=== PATIENT | male | born 1955 | race Caucasian/White ===

== ENCOUNTER 2025-07-07 19:02 | Inpatient (IN) | payer MEDICARE, OTHER ==
[~2025-07-07] VITALS: Ht 157.5 cm; Wt 62.6 kg
[2025-07-07 19:59] LABS: PLATELET COUNT (AUTO) 218 K/uL (150-450); RED BLOOD CELL COUNT(AUTO) 3.65 MIL/uL (4.5-6.0); RED CELL DISTRIBUTION WIDTH 14.1 % (11.5-15.0); WHITE BLOOD COUNT (AUTO) 3.8 K/uL (4.3-11.0)
[2025-07-07 20:12] LABS: ALCOHOL, BLOOD < 3 mg/dL (0-10); ASPARTATE AMINOTRANSFERASE 18 U/L (15-37); CALCIUM, SERUM 9.1 mg/dL (8.5-10.1); CREATININE 1.4 mg/dL (0.6-1.3); SODIUM SERUM 137 mmol/L (136-145); TOTAL PROTEIN, SERUM 7.3 g/dL (6.4-8.2); UREA NITROGEN, BLOOD 24 mg/dL (7-18)
[2025-07-07 21:00] LABS: AMPHETAMINE, URINE NEGATIVE (NEGATIVE); BARBITURATE, URINE NEGATIVE (NEGATIVE); BENZODIAZEPINE, URINE NEGATIVE (NEGATIVE); CANNABINOID, URINE NEGATIVE (NEGATIVE); COCCAINE, URINE NEGATIVE (NEGATIVE); OPIATE, URINE NEGATIVE (NEGATIVE)
[2025-07-07 21:20] LABS: APPEARANCE,URINE CLEAR (CLEAR); BLOOD, URINE NEGATIVE Ery/uL (NEGATIVE); LEUKOCYTE ESTERASE ,URINE NEGATIVE (NEGATIVE); NITRITE, URINE NEGATIVE (NEGATIVE); UGLUCOSE NEGATIVE (NEGATIVE)
[2025-07-07 21:30] LABS: ADD URINE CULTURE NO; SQUAMOUS EPITHELIAL CELL,UR None Seen /HPF (None Seen)
[2025-07-07] MEDS ORDERED: RISP1TAB7 PO (23:38)
[2025-07-07] MEDS ORDERED: ATOR80TA PO (23:38)
[2025-07-07] MEDS ORDERED: CHOL100040 PO (23:38)
[2025-07-07] MEDS ORDERED: RISP0.5T5 PO (23:38)
[2025-07-07] MEDS ORDERED: FENO48TA6 PO (23:38)
[2025-07-07] MEDS ORDERED: SENN-18 PO (23:38)
[2025-07-07] MEDS ORDERED: MAG30ORA PO (23:38)
[2025-07-07] MEDS ORDERED: ACET325T53 PO (23:38)
[2025-07-07] MEDS ORDERED: POLY17PO4 PO (23:38)
[2025-07-07] MEDS ORDERED: OXCA300T15 PO (23:38)
[2025-07-08] MEDS ORDERED: ACETAMINOPHEN 325 MG TABLET PO PRN (10:30)
[2025-07-08] MEDS ORDERED: ZOLPIDEM TARTRATE 5 MG TABLET PO PRN (10:30)
[2025-07-08] MEDS ORDERED: QUETIAPINE FUMARATE 25 MG TABLET PO PRN (10:30)
[2025-07-08] MEDS ORDERED: MAG HYDROX/AL HYDROX/SIMETH 30 ML UDC PO PRN (10:30)
[2025-07-08] MEDS ORDERED: MAGNESIUM HYDROXIDE 30 ML UDC PO PRN (10:30)
[2025-07-08] MEDS: BLOOD SUGAR DIAGNOSTIC 1 EACH STRIP IN ONE (10:53)
[2025-07-08 13:32] VITALS: BP 127/62; TEMP 98; O2SAT 95
[2025-07-08 16:00] VITALS: BP 99/61; TEMP 97.5; O2SAT 100
[2025-07-08 21:00] VITALS: BP 104/60; TEMP 97.7; O2SAT 98
[2025-07-08] MEDS: OLANZAPINE 5 MG TABLET PO SCH (21:27)
[2025-07-09 07:50] LABS: CREATININE 1.2 mg/dL (0.6-1.3)
[2025-07-09 08:00] VITALS: BP 98/55; TEMP 97.8; O2SAT 96
[2025-07-09 08:01] LABS: LDL 81 mg/dL (0-99)
[2025-07-09 08:04] LABS: ASPARTATE AMINOTRANSFERASE 14.0 U/L (15-37); CALCIUM, SERUM 8.7 mg/dL (8.5-10.1); CREATININE 1.1 mg/dL (0.6-1.3); SODIUM SERUM 140.0 mmol/L (136-145); TOTAL PROTEIN, SERUM 6.7 g/dL (6.4-8.2); UREA NITROGEN, BLOOD 19.0 mg/dL (7-18)
[2025-07-09] MEDS: NICOTINE PATCH (21MG) 21 MG PATCH.TD24 TD SCH (08:33)
[2025-07-09] MEDS: DIVALPROEX SODIUM 250 MG TABLET.DR PO SCH (08:33)
[2025-07-09 16:00] VITALS: BP 105/75; TEMP 98.2; O2SAT 98
[2025-07-09 20:22] VITALS: BP 103/70; TEMP 97.6; O2SAT 96
[2025-07-09] MEDS: OLANZAPINE 2.5 MG TABLET PO PRN (21:08)
[2025-07-10 08:00] VITALS: BP 102/65; TEMP 98.9; O2SAT 97
[2025-07-10 16:00] VITALS: BP 106/75; TEMP 97.8; O2SAT 97
[2025-07-10] MEDS: DIVALPROEX SODIUM 250 MG TABLET.DR PO SCH (16:16)
[2025-07-10 20:09] VITALS: BP 100/67; TEMP 97.5; O2SAT 96
[2025-07-11 08:00] VITALS: BP 100/61; TEMP 97.9; O2SAT 100
[2025-07-11] MEDS: OLANZAPINE 2.5 MG TABLET PO SCH (08:54)
[2025-07-11] MEDS: DIVALPROEX SODIUM 125 MG TABLET.DR PO SCH (08:54)
[2025-07-11 16:00] VITALS: BP 92/60; TEMP 98.7; O2SAT 93
[2025-07-11 20:00] VITALS: BP 113/64; TEMP 97.9; O2SAT 93
[2025-07-11 20:20] VITALS: BP 113/64; TEMP 97.9; O2SAT 100
[2025-07-12 08:00] VITALS: BP 124/90; TEMP 98.7; O2SAT 99
[2025-07-12 16:00] VITALS: BP 106/74; TEMP 98.6; O2SAT 98
[2025-07-12 20:00] VITALS: BP 108/79; TEMP 98.1; O2SAT 96
[2025-07-12 20:11] VITALS: BP 107/74; TEMP 98.1; O2SAT 96
[2025-07-13 08:00] VITALS: BP 104/76; TEMP 97.8; O2SAT 96
[2025-07-13 16:00] VITALS: BP 122/74; TEMP 97.5; O2SAT 97
[2025-07-14 05:08] VITALS: BP 118/73; TEMP 97.7; O2SAT 97
[2025-07-14 08:00] VITALS: BP 99/71; TEMP 97.9; O2SAT 97
[2025-07-14 15:59] VITALS: BP 117/64; TEMP 97.9; O2SAT 96
[2025-07-14 20:29] VITALS: BP 129/78; TEMP 98.6; O2SAT 96
[2025-07-15 08:09] VITALS: BP 100/65; TEMP 97.8; O2SAT 97
[2025-07-15 16:01] VITALS: BP 108/73; TEMP 98.1; O2SAT 97
[2025-07-15 20:33] VITALS: BP 110/62; TEMP 98.6; O2SAT 97
[2025-07-15 20:46] VITALS: BP 110/62; TEMP 98.6; O2SAT 97
[2025-07-15] MEDS: DIVALPROEX SODIUM 250 MG TABLET.DR PO SCH (21:44)
[2025-07-16 08:00] VITALS: BP 105/64; TEMP 98.3; O2SAT 96
[2025-07-16 16:00] VITALS: BP 108/72; TEMP 98.8; O2SAT 96
[2025-07-16 20:37] VITALS: BP 101/54; TEMP 98.1; O2SAT 97
[2025-07-17 08:00] VITALS: BP 110/73; TEMP 98.7; O2SAT 98
[2025-07-17 16:00] VITALS: BP 103/56; TEMP 98.6; O2SAT 98
[2025-07-17 19:54] VITALS: BP 106/67; TEMP 98.6; O2SAT 97
[2025-07-17] MEDS: DIVALPROEX SODIUM 125 MG TABLET.DR PO SCH (20:47)
[2025-07-18 08:00] VITALS: BP 106/84; TEMP 97.9; O2SAT 99
[2025-07-18 16:00] VITALS: BP 120/66; TEMP 97.8; O2SAT 98
[2025-07-18 20:17] VITALS: BP 113/65; TEMP 97.8; O2SAT 100
[2025-07-19 08:00] VITALS: BP 119/75; TEMP 97.6; O2SAT 96
[2025-07-19 16:00] VITALS: BP 104/69; TEMP 97.3; O2SAT 95
[2025-07-20 08:00] VITALS: BP 121/82; TEMP 97.5; O2SAT 98
[2025-07-20 17:57] VITALS: BP 101/63; TEMP 97.3; O2SAT 97
[2025-07-20 20:00] VITALS: BP 109/75; TEMP 97.9; O2SAT 98
[2025-07-21 08:00] VITALS: BP 113/70; TEMP 98; O2SAT 96
== END 2025-07-21 10:35 | DRG 885 ==
LOC: ER 19:15 → GPS 07-08 08:52 → GPSOV 07-19 10:46 → GPS 07-20 18:32
PROVIDERS: ADMIT Acupuncturist; ATTEND Nurse Practitioner Family
DX: F25.9 Schizoaffective disorder, unspecified (principal); G93.40 Encephalopathy, unspecified; E44.1 Mild protein-calorie malnutrition; J44.9 Chronic obstructive pulmonary disease, unspecified; F39 Unspecified mood [affective] disorder; D64.9 Anemia, unspecified; E88.09 Other disorders of plasma-protein metabolism, not elsewhere classified; F32.9 Major depressive disorder, single episode, unspecified; F29 Unspecified psychosis not due to a substance or known physiological condition; F17.210 Nicotine dependence, cigarettes, uncomplicated; Z71.6 Tobacco abuse counseling; D63.8 Anemia in other chronic diseases classified elsewhere; R79.89 Other specified abnormal findings of blood chemistry; G31.84 Mild cognitive impairment of uncertain or unknown etiology
CPT/HCPCS: 36415; 80048-TC; 80053-TC; 80061-TC; 80076-TC; 80164-TC; 81001; 82565-TC; 82962-TC; 85025-TC; 87081-TC; 97112-TC; 97116-TC; 97530-TC; G0480